=== PATIENT | male | born 1990 | race Hispanic/Latino ===

== ENCOUNTER 2022-03-13 10:56 | Emergency (ER) | payer SELFPAY ==
[2022-03-13] MEDS ORDERED: CEFAZOLIN 1 GM VIAL ONE (12:13)
[2022-03-13] MEDS ORDERED: Boostrix 0.5 ML (Tdap) VIAL ONE (12:14)
[2022-03-13] MEDS ORDERED: Sterile Water 10 ML ONE (12:15)
[2022-03-13] MEDS ORDERED: Lidocaine 1% w/Epinephrine 1:100K 20 ML VIAL ONE (12:24)
== END 2022-03-13 13:31 | disposition home or self-care (01) ==
LOC: CSHERS 10:56
DX: S61.012A Laceration without foreign body of left thumb without damage to nail, initial encounter (principal); X58.XXXA Exposure to other specified factors, initial encounter
CPT/HCPCS: 12002; 90471; 90715; 96372; J0690